=== PATIENT | male | born 1950 | race Caucasian/White ===

== ENCOUNTER 2017-03-17 09:24 | Day surgery (SDC) | payer OTHER ==
[2017-03-15 14:44] VITALS: BMI 30.8
[2017-03-17] MEDS ORDERED: PROPOFOL 20 ML ONE ×2 (09:54)
[2017-03-17 11:57] VITALS: PULSE 74
[2017-03-17 12:01] VITALS: BP 124/68; TEMP 98.2
--- NOTE | 2017-03-19 11:40 | PATH ---
Surgical Pathology Report Patient Name: RACHID SANCHEZ JR [facility]. Rec. #: [id number] /Age/Gender: 1950 (Age: 66) / M Account: [id number] Location: [facility]-ENDOSCOPY Taken: 03/17/2017 Received: 03/17/2017 Reported: 03/19/2017 Physicians: Alma Lance M.D. Specimen(s) Received A: BX 70CM / TRANSVERSE COLON B: BX 30CM / DESCENDING COLON Clinical History Rule out colon cancer Polyps Final Diagnosis A. COLON, TRANSVERSE AT 70 CM, BIOPSY: TUBULAR ADENOMA. B. COLON, DESCENDING AT 30 CM, BIOPSY: TUBULAR ADENOMA. Electronically Signed Juan Chapman M.D. Gross Description A. Received in formalin, labeled "70 cm transverse" is a serrato, irregular portion of soft tissue measuring 0.4 cm. in greatest dimension. The specimen is submitted in toto in one cassette. B. Received in formalin, labeled "descending 30 cm" is a serrato, irregular portion of soft tissue measuring 0.3 cm. in greatest dimension. The specimen is submitted in toto in one cassette. 03/18/2017 saudi03/18/2017
== END 2017-03-17 12:18 | disposition home or self-care (01) ==
LOC: FASU-ENDO 09:24
PROVIDERS: ATTEND Internal Medicine Gastroenterology
PROC: 0DBP8ZX Excision of Rectum, Via Natural or Artificial Opening Endoscopic, Diagnostic (ICD-10-PCS; 2017-03-17)
PROC: 0DBL8ZX Excision of Transverse Colon, Via Natural or Artificial Opening Endoscopic, Diagnostic (ICD-10-PCS; principal; 2017-03-17 11:00)
PROC: 0DBN8ZX Excision of Sigmoid Colon, Via Natural or Artificial Opening Endoscopic, Diagnostic (ICD-10-PCS; 2017-03-17 11:00)
DX: Z86.010 Personal history of colon polyps (principal); D12.3 Benign neoplasm of transverse colon; D12.5 Benign neoplasm of sigmoid colon; K57.30 Diverticulosis of large intestine without perforation or abscess without bleeding; K64.8 Other hemorrhoids
CPT/HCPCS: 88305-TC

== ENCOUNTER 2021-03-18 08:17 | Day surgery (SDC) | payer OTHER ==
[2021-03-12 15:47] VITALS: BMI 30.8
[2021-03-18] MEDS ORDERED: LIDOCAINE HCL/PF 2% SDV 5ML VIAL ONE (08:44)
[2021-03-18] MEDS ORDERED: PROPOFOL 20 ML ONE ×4 (08:45)
[2021-03-18 17:33] VITALS: TEMP 97.7
[2021-03-18 17:42] VITALS: BP 110/60; PULSE 75
== END 2021-03-18 13:00 | disposition home or self-care (01) ==
LOC: FASU-ENDO 08:17
PROVIDERS: ATTEND Internal Medicine Gastroenterology
PROC: 0DB68ZX Excision of Stomach, Via Natural or Artificial Opening Endoscopic, Diagnostic (ICD-10-PCS; 2021-03-18)
PROC: 0DB48ZX Excision of Esophagogastric Junction, Via Natural or Artificial Opening Endoscopic, Diagnostic (ICD-10-PCS; 2021-03-18)
PROC: 0DB98ZX Excision of Duodenum, Via Natural or Artificial Opening Endoscopic, Diagnostic (ICD-10-PCS; principal; 2021-03-18 09:20)
DX: K29.50 Unspecified chronic gastritis without bleeding (principal); K20.90 Esophagitis, unspecified without bleeding; Z87.19 Personal history of other diseases of the digestive system

== ENCOUNTER 2021-08-08 08:02 | Day surgery (SDC) | payer OTHER ==
[2021-08-06 13:52] VITALS: BMI 31.0
[2021-08-08] MEDS ORDERED: PROPOFOL 20 ML ONE ×4 (09:20)
[2021-08-08] MEDS ORDERED: LIDOCAINE HCL/PF 2% SDV 5ML VIAL ONE (09:20)
[2021-08-08 09:48] VITALS: TEMP 97.3
[2021-08-08 10:11] VITALS: BP 142/74; PULSE 78
== END 2021-08-08 10:05 | disposition home or self-care (01) ==
LOC: FASU-ENDO 08:02
PROVIDERS: ATTEND Internal Medicine Gastroenterology
PROC: 0DBN8ZX Excision of Sigmoid Colon, Via Natural or Artificial Opening Endoscopic, Diagnostic (ICD-10-PCS; 2021-08-08)
PROC: 0DBM8ZX Excision of Descending Colon, Via Natural or Artificial Opening Endoscopic, Diagnostic (ICD-10-PCS; principal; 2021-08-08 09:19)
DX: Z86.010 Personal history of colon polyps (principal); D12.7 Benign neoplasm of rectosigmoid junction; K63.89 Other specified diseases of intestine; K64.1 Second degree hemorrhoids
CPT/HCPCS: 88305-TC